=== PATIENT | male | born 1975 | race Caucasian/White ===

== ENCOUNTER 2018-02-04 20:11 | Emergency (ER) | payer MEDICAID ==
[~2018-02-04] VITALS: Ht 177.8 cm; Wt 147.4 kg
[2018-02-04 20:43] VITALS: BP 150/104
== END 2018-02-05 00:40 | disposition left against medical advice (07) ==
LOC: ER 20:11
DX: M79.671 Pain in right foot (principal); Z53.21 Procedure and treatment not carried out due to patient leaving prior to being seen by health care provider
CPT/HCPCS: 73630

== ENCOUNTER 2018-02-05 08:58 | Emergency (ER) | payer MEDICAID ==
[~2018-02-05] VITALS: Ht 177.8 cm; Wt 158.8 kg
[2018-02-05 09:05] VITALS: BP 124/82
== END 2018-02-05 10:49 | disposition home or self-care (01) ==
LOC: ER 08:58
DX: M79.672 Pain in left foot (principal); Z88.0 Allergy status to penicillin